=== PATIENT | female | born 1965 | race American Indian/Alaskan Native ===

== ENCOUNTER 2021-02-11 16:32 | Emergency (ER) | payer SELFPAY ==
[2021-02-11] MEDS ORDERED: LORazepam 1 MG TAB PO SCH (17:00)
[2021-02-11] MEDS ORDERED: cloNIDine 0.2 MG TAB PO SCH (17:00)
--- NOTE | 2021-02-11 17:58 | Emergency Department Report ---
ED General Adult HPI - General Chief complaint: High BP Stated complaint: BLOOD PRESSURE Time Seen by Provider: 02/11/21 16:34 Source: patient Mode of arrival: Ambulatory Limitations: No Limitations - History of Present Illness Initial comments: Patient 55-year-old F [place] female who is having some mild chest discomfort and headache after being told that her mother had just . Patient states just by chance she was told today at a work physical that she had failed the physical because her blood pressure was elevated. She was not placed on any medications as of yet. Patient states that the news of her brothers passing has made her feel strange and she believes her pressure may have gone up. She is denying any nausea vomiting diaphoresis. Further questioning states that she feels like it is more of a nervous feeling than actual pressure or pain Severity scale (0 -10): 2 - Related Data Previous Rx's Medication Instructions Recorded Last Taken Type Amlodipine Besylate [Norvasc] 5 mg PO DAILY #30 tablet 02/11/21 Unknown Rx Allergies Allergy/AdvReac Type Severity Reaction Status Date / Time sulfamethoxazole Allergy Itching Verified 02/11/21 16:44 [From Bactrim] trimethoprim [From Bactrim] Allergy Itching Verified 02/11/21 16:44 ED Review of Systems ROS: Stated complaint: BLOOD PRESSURE Other details as noted in HPI Comment: All other systems reviewed and negative ED Past Medical Hx - Past Medical History Previous Medical History?: No - Surgical History Past Surgical History?: No - Medications Home Medications: Home Medications Medication Instructions Recorded Confirmed Last Taken Type Amlodipine Besylate [Norvasc] 5 mg PO DAILY #30 tablet 02/11/21 Unknown Rx ED Physical Exam - General Limitations: No Limitations General appearance: alert, anxious, in distress - Head Head exam: Present: atraumatic, normocephalic - Eye Eye exam: Present: normal appearance, PERRL, EOMI - ENT ENT exam: Present: mucous membranes moist - Neck Neck exam: Present: normal inspection - Respiratory Respiratory exam: Present: normal lung sounds bilaterally. Absent: respiratory distress, wheezes, rales, rhonchi - Cardiovascular Cardiovascular Exam: Present: regular rate, normal rhythm, normal heart sounds. Absent: systolic murmur, diastolic murmur, rubs, gallop - GI/Abdominal GI/Abdominal exam: Present: soft, normal bowel sounds. Absent: distended, tenderness, guarding - Extremities Exam Extremities exam: Present: normal inspection - Back Exam Back exam: Present: normal inspection - Neurological Exam Neurological exam: Present: alert, oriented X3 - Psychiatric Psychiatric exam: Present: normal affect, normal mood - Skin Skin exam: Present: warm, dry, intact, normal color. Absent: rash ED Course Vital Signs 02/11/21 02/11/21 02/11/21 16:45 16:52 17:59 Pulse Rate 86 83 87 Respiratory 16 16 Rate Blood Pressure 177/93 Blood Pressure 193/97 146/89 [Left] O2 Sat by Pulse 99 98 Oximetry ED Medical Decision Making - Medical Decision Making Patient likely with anxiety reaction secondary to the grief of hearing that her mother had . After being consoled by family and receiving Ativan and Catapres the patient isFeeling much improved. Critical care attestation.: If time is entered above; I have spent that time in minutes in the direct care of this critically ill patient, excluding procedure time. ED Disposition Clinical Impression: Hypertensive urgency, Anxiety reaction Disposition: 01 HOME / SELF CARE / HOMELESS Is pt being admited?: No Does the pt Need Aspirin: No Condition: Stable Instructions: Managing Loss, Adult, Hypertension, Adult, [id number] Prescriptions: Amlodipine Besylate [Norvasc] 5 mg PO DAILY #30 tablet Time of Disposition: 17:59
[2021-02-11 17:59] VITALS: BP 146/89
== END 2021-02-11 18:15 | disposition home or self-care (01) ==
LOC: ED 16:32
DX: I16.0 Hypertensive urgency (principal); F41.9 Anxiety disorder, unspecified; Z88.2 Allergy status to sulfonamides; Z88.8 Allergy status to other drugs, medicaments and biological substances; Z79.899 Other long term (current) drug therapy
CPT/HCPCS: 99282